=== PATIENT | male | born 1985 | race African-American/Black ===

== ENCOUNTER 2017-08-25 18:26 | Emergency (ER) | payer MEDICARE, OTHER ==
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
[2017-08-25] MEDS ORDERED: Lidocaine 1% 5ml(IM or SUTURE)(PAIN CLINIC) IJ ONE (19:45)
[2017-08-25 20:25] VITALS: BP 112/66
== END 2017-08-25 20:20 | disposition home or self-care (01) ==
LOC: ED 18:26
DX: S51.811A Laceration without foreign body of right forearm, initial encounter (principal); W25.XXXA Contact with sharp glass, initial encounter; Y93.89 Activity, other specified; Y92.9 Unspecified place or not applicable; Y99.9 Unspecified external cause status
CPT/HCPCS: 12002

== ENCOUNTER 2017-09-15 14:43 | Emergency (ER) | payer MEDICARE, OTHER ==
[2017-09-15 15:01] VITALS: BP 113/73
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
[2017-09-15 15:22] LABS: BASOPHILS % 0.6 (0.0-1.5); EOSINOPHILS % 4.5 % (0.0-6.8); MEAN CORPUSCULAR VOLUME 93.5 fl (80.0-100.0); MONOCYTES % 4.1 % (0.0-11.0); NEUTROPHILS # 3.4 # k/uL (1.4-7.7)
[2017-09-15 15:29] LABS: eGFR (African) > 60; eGFR (Non-African) > 60
[2017-09-15] MEDS ORDERED: QUEtiapine FUMARATE 25 MG TABLET PO ONE (19:16)
[2017-09-15] MEDS ORDERED: CloNIDine HCL 0.1 MG TABLET PO ONE (19:17)
[2017-09-15] MEDS ORDERED: DOCUSATE SODIUM 100 MG CAPSULE PO ONE (19:17)
[2017-09-15] MEDS ORDERED: LEVOTHYROXINE SODIUM 100 MCG TABLET ONE (19:24)
[2017-09-15] MEDS ORDERED: LEVOTHYROXINE SODIUM 25 MCG TABLET ONE (19:24)
[2017-09-16 07:39] LABS: APPEARANCE,URINE CLOUDY (CLEAR); COLOR,URINE AMBER (YELLOW); OCCULT BLOOD,URINE NEGATIVE (NEGATIVE); PH URINE 7.5 (5.0 - 8.0)
[2017-09-16 07:40] LABS: CANNABINOIDS NEGATIVE ng/mL (< 50); METHYLENEDIOXYMETHAMPHETAMINE NEGATIVE ng/mL (<500)
[2017-09-16] MEDS ORDERED: LEVOTHYROXINE SODIUM 100 MCG TABLET PO SCH (19:00)
== END 2017-09-15 22:30 | disposition home or self-care (01) ==
LOC: ED 14:43
DX: R41.82 Altered mental status, unspecified (principal)
CPT/HCPCS: 36415; 80053; 81002; 85025; G0481; 80377; 99283

== ENCOUNTER 2017-09-18 13:12 | Emergency (ER) | payer MEDICARE, OTHER ==
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
[2017-09-18 13:54] LABS: APPEARANCE,URINE CLEAR (CLEAR); CANNABINOIDS NEGATIVE ng/mL (< 50); COLOR,URINE YELLOW (YELLOW); METHYLENEDIOXYMETHAMPHETAMINE NEGATIVE ng/mL (<500); OCCULT BLOOD,URINE NEGATIVE (NEGATIVE); PH URINE 7.5 (5.0 - 8.0); UROBILINOGEN URINE 0.2 Eu (0.2-1.0)
[2017-09-18 14:01] LABS: BASOPHILS % 0.3 (0.0-1.5); EOSINOPHILS % 2.3 % (0.0-6.8); MEAN CORPUSCULAR HEMOGLOBIN 29.8 pg (28.0-34.0); MEAN CORPUSCULAR VOLUME 93.7 fl (80.0-100.0); MONOCYTES % 3.8 % (0.0-11.0); NEUTROPHILS # 3.7 # k/uL (1.4-7.7)
[2017-09-18 14:11] LABS: eGFR (African) > 60; eGFR (Non-African) > 60
[2017-09-18] MEDS ORDERED: CARBAMAZEPINE 200 MG TABLET PO ONE (16:03)
[2017-09-18 17:57] VITALS: BP 130/86
== END 2017-09-18 17:55 | disposition home or self-care (01) ==
LOC: ED 13:12
DX: F31.9 Bipolar disorder, unspecified (principal); F91.9 Conduct disorder, unspecified
CPT/HCPCS: 80053; 81002; 85025; G0481; 80377; 99283

== ENCOUNTER 2018-12-02 18:09 | Emergency (ER) | payer MEDICARE, OTHER ==
--- NOTE | 2018-12-02 18:29 | ED Physician Documentation ---
Abscess - HISTORIAN Historian: patient - HPI Stated Complaint: left neck lesion Chief Complaint: Abscess Additional Information: Patient presents to ED with a 4 day history of left neck swelling and tenders. Caregiver report there is a small abscess present which started draining today. Patient reports the area is tender. Denies fever. Onset: days ago (4) Timing: still present Duration: persistent since Location: neck (left ) Quality: painful Where: home Context: Medication Exposure: none Context: Food Exposure: none - ROS CONST: denies: fever CVS/RESP: denies: chest pain, shortness of breath EYES/ENT: denies: sore throat GI/: denies: vomiting, nausea MS/SKIN/LYMPH: denies: neck pain NEURO/PSYCH: denies: headache - PAST HX Past History: none Other History: none Allergies/Adverse Reactions: Allergies Allergy/AdvReac Type Severity Reaction Status Date / Time chlorpromazine HCl Allergy Verified 09/18/17 13:24 [From Thorazine] haloperidol [From Haldol] Allergy Verified 09/18/17 13:24 haloperidol lactate Allergy Verified 09/18/17 13:24 [From Haldol] Home Medications: Ambulatory Orders Medication Instructions Recorded Docusate Sodium [Colace] 100 mg BID 07/19/15 Prazosin HCl 1 mg D 07/19/15 levETIRAcetam [Keppra] 500 mg D 07/19/15 Aripiprazole 1 tab PO DAILY 09/15/17 Clonidine HCl [Catapres] 1 tab PO TID 09/15/17 Divalproex Sodium [Divalproex 2 tab PO BID 09/15/17 Sodium ER] LORazepam [Ativan] 1 tab PO QID 09/15/17 Levothyroxine Sodium [Unithroid] 1 tab PO DAILY 09/15/17 [place] Carbonate 1 tab PO TID 09/15/17 Metoprolol Succinate (Nf) [Toprol 1 tab PO DAILY 09/15/17 XL] Omeprazole 1 tab PO DAILY 09/15/17 Polyethylene Glycol 3350 [Miralax] 17 gm PO PRN PRN 09/15/17 Prazosin HCl [Minipress] 1 tab PO DAILY 09/15/17 Quetiapine Fumarate [Seroquel] 1 tab PO DAILY 09/15/17 Quetiapine Fumarate [Seroquel] 1 tab PO HS 09/15/17 carBAMazepine [Tegretol] 3 tab PO DAILY 09/15/17 - SOCIAL HX Smoking History: non-smoker Alcohol Use: none Drug Use: none - FAMILY HX Family History: none - VITAL SIGNS Vital Signs: Vital Signs Temp Pulse Resp BP Pulse Ox 130/86 09/18/17 17:55 - REVIEWED ASSESSMENTS Nursing Assessment Reviewed: Yes Vitals Reviewed: Yes ED Results Lab/Radiology - Orders Orders: ED Orders Category Date Time Status WOUND CULTURE Stat Lab 12/02/18 Ordered Amoxicillin/Potassium Clav [AUGMENTIN 875MG/125 mg Med 12/02/18 18:27 Once Tablet] 1 each PO NOW ONE Abscess Physical Exam - EXAM General Appearance: no acute distress, alert Skin: warm,dry Location: posterior neck (left) Character: erythematous (draining 2 cm lesion) Symptoms: warmth, tenderness, swelling Extremities: non-tender, nml ROM EENT: eyes nml inspection Neck: trachea midline Respiratory: no resp distress, chest non-tender, breath sounds normal CVS: reg. rate & rhythm, heart sounds nml Abdomen: non-tender, nml bowel sounds Neuro/Psych: oriented x3, motor nml, sensation nml, mood/affect nml Discharge Clincal Impression: Abscess of skin of neck Referrals: Adalid Lopez MD [Primary Care Provider] - 2 Days Additional Instructions: 1. Take antibiotic until gone 2. Tylenol as needed for pain 3. Warm moist compresses to area as needed for comfort 4. Wash area twice daily with antibacterial soap 5. Follow up with PCP within 1 week 6. Return to the ER for new or worsening symptoms Condition: Stable Disposition: 01 HOME, SELF-CARE Decision to Admit: NO Date of Decison to Admit: 12/02/18 Decision Time: 18:33
[2018-12-02 18:31] VITALS: BP 134/89
[2018-12-02] MEDS: AMOXICILLIN/POT 875/125 1 EACH PO ONE (18:35)
== END 2018-12-02 18:42 | disposition home or self-care (01) ==
LOC: ED 18:09
DX: L02.11 Cutaneous abscess of neck (principal)
CPT/HCPCS: 87070; 99283; 99284